=== PATIENT | female | born 1995 | race Caucasian/White ===

== ENCOUNTER → 2016-11-26 | Outpatient (CLI) | payer BC ==
--- NOTE | 2016-11-26 16:48 | US ---
EXAMINATION TYPE: US pelvic complete DATE OF EXAM: 11/26/2016 4:00 PM COMPARISON: NONE CLINICAL HISTORY: R10.2 Pelvic pain. gen pelvic pain, painful cycles TECHNIQUE: Transabdominal (TA) Date of LMP: EXAM MEASUREMENTS: Uterus: 8.2 x 3.8 x 5.1 cm Endometrial Stripe: 0.6 cm Right Ovary: 2.9 x 2.0 x 2.9 cm Left Ovary: 2.7 x 1.4 x 2.1 cm TECHNOLOGIST IMPRESSION: 1. Uterus: Anteverted wnl 2. Endometrium: wnl 3. Right Ovary: wnl 4. Left Ovary: wnl 5. Bilateral Adnexa: wnl 6. Posterior cul-de-sac: no free fluid seen IMPRESSION: Normal pelvic ultrasound.
== END | disposition home or self-care (01) ==
LOC: RADUSWWP 15:58
PROVIDERS: ATTEND Obstetrics & Gynecology
DX: R10.2 Pelvic and perineal pain (principal)
CPT/HCPCS: 76856

== ENCOUNTER → 2017-11-22 | Outpatient (CLI) | payer BC ==
--- NOTE | 2017-11-22 16:32 | US ---
EXAMINATION TYPE: US pelvic complete DATE OF EXAM: 11/22/2017 COMPARISON: US CLINICAL HISTORY: Pelvic Pain R10.2. Pt states pelvic pain, more on right side and abnormal vaginal b leeding x 2 months TECHNIQUE: Transabdominal (TA) Date of LMP: 11/22/2017 EXAM MEASUREMENTS: Uterus: 8.7 x 2.5 x 4.8 cm Endometrial Stripe: 0.3 cm Right Ovary: 2.3 x 1.3 x 2.8 cm Left Ovary: 3.1 x 1.7 x 2.3 cm 1. Uterus: Anteverted Appeared wnl 2. Endometrium: wnl 3. Right Ovary: wnl 4. Left Ovary: wnl 5. Bilateral Adnexa: wnl 6. Posterior cul-de-sac: wnl No abnormality visualized to account for pt's symptoms IMPRESSION: 1. No significant abnormality seen.
== END | disposition home or self-care (01) ==
LOC: RADUSWWP 16:11
PROVIDERS: ATTEND Obstetrics & Gynecology
DX: R10.2 Pelvic and perineal pain (principal)
CPT/HCPCS: 76856

== ENCOUNTER → 2023-07-27 | Outpatient (CLI) | payer BC ==
[~2023-07-27] MED LIST: IODINE/POTASSIUM IODIDE 14 ML BOTTLE ONE
--- NOTE | 2023-07-28 08:45 | NM ---
EXAMINATION TYPE: NM DatScan Brain SPECT DATE OF EXAM: 07/27/2023 COMPARISON: NONE HISTORY: Tremor TECHNIQUE: 10 drops of Lugol's solution was administered 1 hour prior to injection as a thyroid bloc uche agent. After the administration of 4.58 mCi I-123 Ioflupane DaTscan. Images obtained 3 hours p ost injection. SPECT images of the brain were acquired with axial and coronal reconstructions. FINDINGS: The axial SPECT images demonstrate normal background activity. Accounting for head tilt, t here appears to be slight asymmetrically blunted comma-shaped appearance of the right corpus striatum . IMPRESSION: Slightly blunted striatal activity on the left may indicate early changes of idiopathic P arkinson's disease or Parkinsonian syndrome.
== END | disposition home or self-care (01) ==
LOC: RADNMMAIN 10:53
PROVIDERS: ATTEND Psychiatry & Neurology Neurology
DX: G25.0 Essential tremor (principal)
CPT/HCPCS: 78803; A9584

== ENCOUNTER → 2023-09-06 | Day surgery (SDC) | payer BC ==
[2023-09-03 09:36] VITALS: BMI 20.5
[~2023-09-06] MED LIST changes: -IODINE/POTASSIUM IODIDE 14 ML BOTTLE ONE; +SODIUM CHLORIDE 0.9% 1,000 ML IV SCH
[2023-09-06 13:30] VITALS: BP 114/73; PULSE 67; RESP 14; TEMP 98.5
== END ==
LOC: CATHEP 11:38
PROVIDERS: ATTEND Internal Medicine Clinical Cardiac Electrophysiology
DX: R55 Syncope and collapse (principal); G43.909 Migraine, unspecified, not intractable, without status migrainosus; M50.30 Other cervical disc degeneration, unspecified cervical region; I73.00 Raynaud's syndrome without gangrene; Z79.899 Other long term (current) drug therapy
CPT/HCPCS: 81025; 93660